=== PATIENT | female | born 1940 | race Caucasian/White ===

== ENCOUNTER → 2017-02-16 | Outpatient (CLI) | payer MEDICARE, BC ==
[2017-02-16 15:25] LABS: BASOPHILS % (AUTO) 0.2 % (0-2); EOSINOPHILS # (AUTO) 0.1 T/MM3 (0-0.5); EOSINOPHILS % (AUTO) 1.2 % (0-4); IMMATURE GRANULOCYTE # (AUTO) 0.01 T/MM3 (0.00-0.03); IMMATURE GRANULOCYTE % (AUTO) 0.1 % (0.0-0.5); LYMPHOCYTES # (AUTO) 2.6 T/MM3 (1-4.8); LYMPHOCYTES % (AUTO) 31.6 % (23-45); MEAN CORPUSCULAR HGB 32.4 UUG (26-34); MEAN CORPUSCULAR HGB CONC(MCHC 34.1 GM/DL (31-37); MEAN CORPUSCULAR VOLUME 94.9 UM3 (80-100); MEAN PLATELET VOLUME 10.1 UM3 (9.4-12.4); MONOCYTES # (AUTO) 0.6 T/MM3 (0-0.8); MONOCYTES % (AUTO) 6.8 % (0-9.0); NEUTROPHILS #(AUTO)-ABSOLUTE 4.8 T/MM3 (1.8-7.7); NEUTROPHILS % (AUTO) 60.1 % (33-66); RED BLOOD COUNT 4.32 M/MM3 (4.00-5.20); WBC - WHITE BLOOD COUNT 8.1 T/MM3 (4.5-11.0)
[2017-02-16 15:36] LABS: ALBUMIN/GLOBULIN RATIO 1.3 RATIO (1.1-2.2); ALKALINE PHOSPHATASE 104 U/L (38-126); ALT (SGPT) 31 U/L (9-52); ANION GAP 13 MEQ/L (5-15); AST (SGOT) 23 U/L (14-36); BUN/CREATININE RATIO 30 RATIO (6-26); CALCIUM 9.5 MG/DL (8.4-10.2); CHLORIDE 107 MEQ/L (98-107); CO2 - CARBON DIOXIDE 28 MEQ/L (22-30); CREATININE 0.6 MG/DL (0.7-1.2); GLOMERULAR FILTRATION RATE 97; GLUCOSE 137 MG/DL (65-110); LDH 383 U/L (313-618); MAGNESIUM 2.1 MG/DL (1.6-2.3); POTASSIUM 3.8 MEQ/L (3.6-5); SODIUM 148 MEQ/L (134-144)
== END ==
LOC: LAB 15:08
PROVIDERS: ATTEND Internal Medicine Hematology & Oncology
DX: C34.12 Malignant neoplasm of upper lobe, left bronchus or lung (principal); R94.5 Abnormal results of liver function studies
CPT/HCPCS: 36415; 80053; 82378; 83615; 83735; 85025

== ENCOUNTER → 2017-03-23 | Outpatient (CLI) | payer MEDICARE, BC ==
[2017-03-23 14:58] LABS: BASOPHILS % (AUTO) 0.1 % (0-2); EOSINOPHILS # (AUTO) 0.1 T/MM3 (0-0.5); HCT - HEMATOCRIT 40.1 % (36-46); HGB - HEMOGLOBIN 14.1 GM/DL (12-16); IMMATURE GRANULOCYTE # (AUTO) 0.01 T/MM3 (0.00-0.03); IMMATURE GRANULOCYTE % (AUTO) 0.1 % (0.0-0.5); LYMPHOCYTES # (AUTO) 2.6 T/MM3 (1-4.8); LYMPHOCYTES % (AUTO) 31.7 % (23-45); MEAN CORPUSCULAR HGB CONC(MCHC 35.2 GM/DL (31-37); MEAN CORPUSCULAR VOLUME 93.9 UM3 (80-100); MEAN PLATELET VOLUME 9.9 UM3 (9.4-12.4); MONOCYTES # (AUTO) 0.7 T/MM3 (0-0.8); NEUTROPHILS #(AUTO)-ABSOLUTE 4.9 T/MM3 (1.8-7.7); NEUTROPHILS % (AUTO) 59.1 % (33-66); RED BLOOD COUNT 4.27 M/MM3 (4.00-5.20); WBC - WHITE BLOOD COUNT 8.2 T/MM3 (4.5-11.0)
[2017-03-23 15:10] LABS: ALBUMIN 4.3 G/DL (3.5-5.0); ALBUMIN/GLOBULIN RATIO 1.5 RATIO (1.1-2.2); ALKALINE PHOSPHATASE 115 U/L (38-126); ALT (SGPT) 30 U/L (9-52); ANION GAP 11 MEQ/L (5-15); AST (SGOT) 20 U/L (14-36); BUN/CREATININE RATIO 24 RATIO (6-26); CALCIUM 9.6 MG/DL (8.4-10.2); CHLORIDE 108 MEQ/L (98-107); CO2 - CARBON DIOXIDE 29 MEQ/L (22-30); CREATININE 0.7 MG/DL (0.7-1.2); GLOMERULAR FILTRATION RATE 82; GLUCOSE 93 MG/DL (65-110); LDH 377 U/L (313-618); SODIUM 148 MEQ/L (134-144); TOTAL PROTEIN 7.1 G/DL (6.3-8.2)
--- NOTE | 2017-03-23 15:23 | DI ---
INDICATION: ITS.REASON: C34.12 Malignant neoplasm of upper lobe, left bronchus or lung PROCEDURE: CHEST 2-VIEWS UPRIGHT (PA \T\ LAT) Encounter: Subsequent COMPARISON: Chest CT dated January 04, 2017 and chest x-ray dated November 25, 2016 FINDINGS: Left upper lobe lung mass appears grossly stable radiographically. Right lower lobe pulmonary nodule has slightly enlarged from the comparison x-ray, measuring 1.5 cm in diameter compared to 1.4 cm previously. Bilateral apical pleural thickening. No consolidative pneumonia, pleural effusion or pneumothorax. Heart size and mediastinal contours are stable. Tortuous thoracic aorta. Impression: Slight interval growth in the right lower lobe nodule. .
== END ==
LOC: IMA 14:41
PROVIDERS: ATTEND Internal Medicine Hematology & Oncology
DX: C34.12 Malignant neoplasm of upper lobe, left bronchus or lung (principal)
CPT/HCPCS: 36415; 80053; 82378; 83615; 83735; 85025